=== PATIENT | male | born 1980 | race Caucasian/White ===

== ENCOUNTER 2020-07-13 21:54 | Emergency (ER) | payer OTHER ==
[~2020-07-13] VITALS: Ht 170.2 cm; Wt 79.5 kg
[2020-07-13 23:00] VITALS: BP 142/77
== END 2020-07-14 00:05 | disposition home or self-care (01) ==
LOC: EMS 21:54
DX: Z20.828 Contact with and (suspected) exposure to other viral communicable diseases (principal)
CPT/HCPCS: 99283; U0003